=== PATIENT | female | born 1990 | race African-American/Black ===

== ENCOUNTER 2018-05-23 20:38 | Emergency (ER) | payer OTHER ==
--- NOTE | 2018-05-23 20:57 | PDOC ---
History of Present Illness - General History Source: Patient Exam Limitations: No Limitations - History of Present Illness Initial Comments: 05/23/18 20:57 A portion of this note was documented by scribe services under my direction. I have reviewed the details of the note, within reason, and agree with the documentation with the following case summary and management plan written by me. Patient treated in the ED. Nursing notes are reviewed and incorporated into the medical decision-making. Vital signs reviewed. Assessment and plan: This is a 27-year-old female brought in by her parents for evaluation of some shortness of breath and chest discomfort. Patient denies any PE risk factors. Patient denies any history of fevers, chills, cough, congestion. Patient says that she's been under a lot of stress and has had similar symptoms in the past. Patient otherwise takes no medications and is healthy. Patient does not smoke, does not use recreational drugs. Patient had a cardiogram that showed normal sinus rhythm at a rate of 84, normal intervals no acute ST-T wave changes 05/23/18 21:09 Patient discharged home with follow-up with her primary care doctor. <Zuri Enamorado I - Last Filed: 05/23/18 21:09> - History of Present Illness Initial Comments: 05/23/18 21:16 Patient is a 27 year old female with no significant past medical history who presents to the ED with complaints of shortness of breath that began last night. Patient reports experiencing shortness of breath as well as associated chest pain that began this morning. She reports experiencing increased chest pain with deep inspiration. Patient reports coming into the ED for further evaluation after symptoms did not subside over time. She reports not taking any medication for symptoms before coming into the ED. Denies chest pain, Sob. Denies nausea, vomiting. Denies fevers, chills. Denies contact with sick individuals, out of state travelling. Denies constipation, diarrhea. Denies dysuria, hematuria. Denies trauma to affected area. Denies any other symptoms. Allergies: None Social history: No smoking. No alcohol. No illicit drugs. Surgical history: None PMD: None Adult ROS General: No fevers or chills, no weakness, no weight loss HEENT: No change in vision. No sore throat, No ear pain Cardiovascular: +chest pain. +Shortness of breath Respiratory:No cough, or wheezing. Gastrointestinal: No nausea, vomiting, diarrhea or constipation, No rectal bleeding Genitourinary: No dysuria, hematuria, or frequency Musculoskeletal: No joint or muscle pain or swelling Neurologic: No headache, vertigo, dizziness or loss of consciousness Psychiatric: No depression Skin: No rashes or easy bruising Endocrine: No increased thirst or abnormal weight change Allergic: No skin or latex allergy All other systems reviewed and normal Adult PE General: Well-nourished well-developed individual, no acute distress HEENT: Throat: Normal, tonsils normal, no erythema or exudate Neck: Supple, no meningeal signs, no lymphadenopathy Eyes:Pupils equal reactive and round, extraocular motion intact Chest: Nontender to palpation Cardiac: S1-S2 normal, regular rate and rhythm, no murmurs rubs or gallops Respiratory: Lungs clear to auscultation bilateral Abdomen: Soft, nondistended, normal bowel sounds, nontender to palpation diffusely Extremities: Warm, dry, no cyanosis, clubbing, or edema Skin: No rashes Neuro: Alert and oriented x3, nonfocal exam, grossly intact, normal gait Psych: Normal mood and affect <Adalberto Hamm - Last Filed: 05/23/18 21:16> - General Chief Complaint: Pain, Acute Stated Complaint: PAIN IN CHEST WITH BREAthing AND MOVING Time Seen by Provider: 05/23/18 20:45 Past History - Past Medical History COPD: No Other medical history: DENIES - Suicide/Smoking/Psychosocial Hx Smoking History: Never smoked Have you smoked in the past 12 months: No Information on smoking cessation initiated: No Hx Alcohol Use: No Drug/Substance Use Hx: No Substance Use Type: None <Zuri Enamorado I - Last Filed: 05/23/18 21:09> <Adalberto Hamm - Last Filed: 05/23/18 21:16> - Past Medical History Allergies/Adverse Reactions: Allergies Allergy/AdvReac Type Severity Reaction Status Date / Time No Known Allergies Allergy Verified 05/23/18 20:51 Home Medications: Ambulatory Orders NK [No Known Home Medication] 05/23/18 *Physical Exam - Vital Signs Last Vital Signs Temp Pulse Resp BP Pulse Ox 98.2 F 92 H 16 150/95 100 05/23/18 20:52 05/23/18 20:52 05/23/18 20:52 05/23/18 20:52 05/23/18 20:52 <Zuri Enamorado I - Last Filed: 05/23/18 21:09> - Vital Signs Last Vital Signs Temp Pulse Resp BP Pulse Ox 98.2 F 92 H 16 150/95 100 05/23/18 20:52 05/23/18 20:52 05/23/18 20:52 05/23/18 20:52 05/23/18 20:52 <Adalberto Hamm - Last Filed: 05/23/18 21:16> Moderate Sedation - Procedure Monitoring Vital Signs: Procedure Monitoring Vital Signs Temperature 98.2 F 05/23/18 20:52 Pulse Rate 92 H 05/23/18 20:52 Respiratory Rate 16 05/23/18 20:52 Blood Pressure 150/95 05/23/18 20:52 O2 Sat by Pulse Oximetry (%) 100 05/23/18 20:52 <Zuri Enamorado I - Last Filed: 05/23/18 21:09> - Procedure Monitoring Vital Signs: Procedure Monitoring Vital Signs Temperature 98.2 F 05/23/18 20:52 Pulse Rate 92 H 05/23/18 20:52 Respiratory Rate 16 05/23/18 20:52 Blood Pressure 150/95 05/23/18 20:52 O2 Sat by Pulse Oximetry (%) 100 05/23/18 20:52 <Adalberto Hamm - Last Filed: 05/23/18 21:16> *DC/Admit/Observation/Transfer - Discharge Dispostion Decision to Admit order: No <Zuri Enamorado I - Last Filed: 05/23/18 21:09> - Attestations Scribe Attestion: 05/23/18 21:16 Documentation prepared by Adalberto Hamm, acting as medical radiation therapist for Zuri Enamorado MD. <Adalberto Hamm - Last Filed: 05/23/18 21:16> Diagnosis at time of Disposition: Atypical chest pain - Discharge Dispostion Disposition: HOME Condition at time of disposition: Stable - Patient Instructions Additional Instructions: take Tylenol or Motrin as needed for the discomfort or pain in your chest. If symptoms persist follow up with your primary care doctor next week. Return to the emergency department immediately with ANY new, persistent or worsening symptoms. Continue any medications as previously prescribed by your physician. You should follow up with your primary doctor as soon as possible regarding today's emergency department visit. . Please make sure your doctor reviews the results of your emergency evaluation. Thank you for coming to the Emergency Department today for your care. It was a pleasure to see you today. Please note that your evaluation is INCOMPLETE until you follow-up with your doctor.
[2018-05-23 21:01] VITALS: BP 150/95; PULSE 92; TEMP 98.2; BMI 32.5
--- NOTE | 2018-05-24 10:12 | EKG ---
Test Reason : Blood Pressure : / mmHG Vent. Rate : 084 BPM Atrial Rate : 084 BPM P-R Int : 166 ms QRS Dur : 084 ms QT Int : 372 ms P-R-T Axes : 061 019 013 degrees QTc Int : 439 ms NORMAL SINUS RHYTHM NORMAL ECG NO PREVIOUS ECGS AVAILABLE Confirmed by LLOYD PEREZ, JOSE ALFREDO ([id number]) on 05/24/2018 10:12:25 AM Referred By: Confirmed By:JOSE ALFREDO DESAI MD
== END 2018-05-23 21:14 | disposition home or self-care (01) ==
LOC: FER 20:38
DX: R07.89 Other chest pain (principal)
CPT/HCPCS: 93005; 99281-25